=== PATIENT | female | born 1980 | race Caucasian/White ===

== ENCOUNTER → 2019-07-19 10:16 | Outpatient (BNVA) | payer BC, SELFPAY | PROVIDERS: Family Provider Nurse Practitioner Family; PCP Nurse Practitioner Family; Visit Provider Physician Assistant | DX: E06.3 Autoimmune thyroiditis (principal); E10.65 Type 1 diabetes mellitus with hyperglycemia | CPT/HCPCS: 80053; 82044; 83036; 84439; 84443 ==

== ENCOUNTER → 2020-08-22 10:49 | Outpatient (BNVA) | payer BC, SELFPAY | PROVIDERS: Family Provider Nurse Practitioner Family; PCP Registered Nurse; Visit Provider Physician Assistant | DX: E03.8 Other specified hypothyroidism (principal); E06.3 Autoimmune thyroiditis; E11.65 Type 2 diabetes mellitus with hyperglycemia | CPT/HCPCS: 80053; 82043; 83036; 84439; 84443 ==

== ENCOUNTER → 2020-10-17 16:23 | Outpatient (BNVA) | payer BC, SELFPAY | PROVIDERS: Family Provider Nurse Practitioner Family; PCP Registered Nurse; Visit Provider Nurse Practitioner Women's Health | DX: N93.9 Abnormal uterine and vaginal bleeding, unspecified (principal) | CPT/HCPCS: 84702; 85025 ==

== ENCOUNTER 2020-11-05 10:18 | Outpatient (CLI) | payer BC, SELFPAY ==
--- NOTE | 2020-11-05 11:00 | US_ITS ---
WS: [id number] ULTRASOUND PELVIS TECHNIQUE: Transvaginal. CLINICAL INFORMATION: N93.9 - Abnormal uterine and vaginal bleeding, unspecified : No. COMPARISON: None. FINDINGS: Uterus Orientation: Anteverted. Size: 9.9 x 5.7 x 6.3 cm Masses: None. Cervix: Incidental nabothian cysts. Endometrium: Heterogeneous thickened endometrium Endometrium thickness: 1.6 cm. Adnexa: Simple right ovarian cyst measuring 2.5 x 2.2 x 1.8 cm with small daughter cyst Right ovary size: 4.4 x 4.3 x 3.0 cm. Left ovary size: 3.1 x 1.4 x 2.6 cm. Free fluid: None. Other findings: None. US/US transvaginal [id number] IMPRESSION: 1. Heterogeneous enlarged uterus. scar visualized. 2. Thickened heterogeneous endometrium measures 16 mm. This can be further danuta luated with hysteroscopy. 3. Simple right ovarian cyst measuring 2.5 x 2.2 x 1.8 cm with small daughter cyst. Normal left ovary. 4. No free fluid in the cul-de-sac.
== END 2020-11-05 10:19 | disposition home or self-care (01) ==
LOC: RAD 10:24
PROVIDERS: PCP Registered Nurse; Visit Provider Nurse Practitioner Women's Health
DX: N93.9 Abnormal uterine and vaginal bleeding, unspecified (principal); N83.291 Other ovarian cyst, right side; R93.89 Abnormal findings on diagnostic imaging of other specified body structures; N85.2 Hypertrophy of uterus
CPT/HCPCS: 76830

== ENCOUNTER → 2020-11-12 11:08 | Outpatient (BNVA) | payer BC, SELFPAY | PROVIDERS: PCP Registered Nurse; Visit Provider Nurse Practitioner Women's Health | DX: N93.9 Abnormal uterine and vaginal bleeding, unspecified (principal) | CPT/HCPCS: 81025; 85025 ==

== ENCOUNTER → 2020-11-13 15:45 | Outpatient (BNVA) | payer BC, SELFPAY | PROVIDERS: PCP Registered Nurse; Referring Provider Nurse Practitioner Women's Health; Visit Provider Obstetrics & Gynecology | DX: N93.9 Abnormal uterine and vaginal bleeding, unspecified (principal) | CPT/HCPCS: 87635 ==

== ENCOUNTER 2020-11-18 08:52 | Day surgery (SDC) | payer BC, SELFPAY ==
[2020-11-17 14:01] VITALS: BMI 43.0
[2020-11-18] VITALS (7 sets, daily range): BP systolic 113–159; BP diastolic 64–94; PULSE 71–108; RESP 16–20; TEMP 36.4–36.6; O2SAT 93–100
[2020-11-18 09:36] LABS: OR HCG Qualitative Urine Negative (Negative)
--- NOTE | 2020-11-18 09:37 | W.PM.OPSUD ---
Surgery/Procedure H&P Update DATE OF PROCEDURE: November 18, 2020 DATE H&P PERFORMED: 11/13/20 H&P UPDATE INFORMATION: I have reviewed H&P completed within last 30 days, I have examined patient prior to procedure and No changes to prior documentation PREOP DIAGNOSIS: AUB, fibroid uterus PLANNED PROCEDURE: Operation Date: 11/18/20 11:10 Proposed Procedures p Hysteroscopy w/ Myosure [id number] n93.9(Not Applicable) - Carmen Fofana MD s Dilation And Curettage (D&C)(Not Applicable) - Carmen Fofana MD
[2020-11-18 09:53] LABS: Glucose Point of Care 271 mg/dL (70-110)
[2020-11-18] MEDS: sodium chloride 0.9% 1,000 ML 30 ML IV (09:56)
[2020-11-18 10:05] LABS: Basophils % 0.6 %; Eosinophils # 0.1 10^3/uL (0.0-0.8); Eosinophils % 2.1 %; Hematocrit 29.9 % (37.0-47.0); Hemoglobin 9.2 g/dL (11.5-15.3); Lymphocytes # 1.8 10^3/uL (0.8-4.8); Mean Corpuscular HGB Conc 30.8 g/dL (30.0-36.0); Mean Corpuscular Hemoglobin 29.5 pg (28.0-34.0); Mean Corpuscular Volume 95.8 fL (81-99); Mean Platelet Volume 9.4 fL (7.4-10.4); Monocytes # 0.3 10^3/uL (0.2-0.9); Nucleated Red Blood Cells % 0 %; Platelet Count 362 10^3/cmm (130-400); Red Blood Count 3.12 10^6/uL (4.1-5.3); Red Cell Distribution Width 13.9 % (12.1-15.1); White Blood Count 6.8 10^3/uL (4.0-10.0)
[2020-11-18 10:30] LABS: Alanine Aminotransferase 10 U/L (0-33); Albumin Level 4.1 g/dL (3.5-5.2); Alkaline Phosphatase 89 IU/L (35-105); Anion Gap 15.7 (5-19); Aspartate Amino Transferase 14 U/L (0-32); Blood Urea Nitrogen 11 mg/dL (6-20); Calcium 8.8 mg/dL (8.5-10.5); Carbon Dioxide 24 mmol/L (22-29); Chloride 101 mmol/L (98-107); Globulin 2.5 g/dL (1.3-4.6); Glucose 256 mg/dL (65-115); Osmolality Calculated 290 mOsm/kg (285-295); Potassium 4.7 mmol/L (3.5-5.1); Sodium 136 mmol/L (136-145); Total Bilirubin 0.3 mg/dL (0.15-1.2); Total Protein 6.6 g/dL (6.6-8.7)
--- NOTE | 2020-11-18 10:43 | ANES.PREANE2 ---
Pre-Anesthetic Assessment Pre-Anesthetic Assessment: Height/Weight: Height 1.75 m Weight 131.995 kg Temp Pulse Resp BP Pulse Ox 97.6 F 95 18 159/94 99 11/18/20 09:39 11/18/20 09:39 11/18/20 09:39 11/18/20 09:39 11/18/20 09:39 Preop Diagnosis: AUB, fibroid uterus Proposed Procedure: Operation Date: 11/18/20 11:10 Proposed Procedures p Hysteroscopy w/ Myosure [id number] n93.9(Not Applicable) - Carmen Fofana MD s Dilation And Curettage (D&C)(Not Applicable) - Carmen Fofana MD Was Beta Sienna taken within 24 hours: N/A Was Clonidine taken within 24 hours: N/A Last intake: Intake Last Liquid Date 11/17/20 Last Liquid Time 22:30 Last Solid Date 11/17/20 Last Solid Time 20:30 Social: Social History: No alcohol and No tobacco Exam: Pre-Anes Outpt Exam: alert, oriented x 3, clear to auscultation bilaterally and regular rate & rhythm Airway: Submandibular: WNL Cervical ROM: WNL MP: 2 Dentition: Full Metabolic: Metabolic: DM, Morbid obesity and Thyroid Anesthetic Plan: ASA status: 3 Anesthesia: General Meds/Allergies Current Medications: Current Medications Generic Name Dose Route Start Last Admin Trade Name Freq PRN Reason Stop Dose Admin Sodium Chloride 1,000 mls @ 30 ml s/hr 11/18/20 09:30 11/18/20 09:56 Sodium Chloride 0.9% IV 11/19/20 09:29 30 mls/hr .Q24H REYNA Administration PFSH Anesthesia PFSH: Medical History Diabetes type 1, controlled Hypothyroidism No pertinent past medical history denies hx:htn,dvt/pe PCP: Bg [facility]/Iram James Surgical History H/O removal of cyst (~2005) pilonidal? History of section 2008 2015 Hx of foot surgery (~1996) right Family History Mother Hypertension Kidney disease Arthritis Heart disease Father Cancer Hypertension Heart disease Denies family history of Cervical cancer Colon cancer Ovarian cancer Breast cancer Uterine cancer Thyroid disease Data Anesthesia CBC & Chem 7: 11/18/20 09:50 11/18/20 09:50 Other Labs: Laboratory Results - last 48 hr 11/18/20 11/18/20 11/18/20 09:21 09:50 09:50 WBC 6.8 RBC 3.12 L Hgb 9.2 L Hct 29.9 L MCV 95.8 MCH 29.5 MCHC 30.8 RDW 13.9 Plt Count 362 MPV 9.4 Neut % (Auto) 66.0 Lymph % (Auto) 26.0 [place] % (Auto) 5.0 Eos % (Auto) 2.1 Baso % (Auto) 0.6 Neut # (Auto) 4.50 Lymph # (Auto) 1.8 [place] # (Auto) 0.3 Eos # (Auto) 0.1 Baso # (Auto) 0.0 Nucleated RBC % (auto) 0 Nucleated RBCs # 0.0 Sodium 136 Potassium 4.7 Chloride 101 Carbon Dioxide 24 Anion Gap 15.7 BUN 11 Creatinine 0.8 GFR Calculation 79.0 L Glucose 256 H POC Glucose Calculated Osmolality 290 Calcium 8.8 Total Bilirubin 0.3 AST 14 ALT 10 Alkaline Phosphatase 89 Total Protein 6.6 Albumin 4.1 Globulin 2.5 Urine HCG, Qual Negative 11/18/20 09:50 WBC RBC Hgb Hct MCV MCH MCHC RDW Plt Count MPV Neut % (Auto) Lymph % (Auto) [place] % (Auto) Eos % (Auto) Baso % (Auto) Neut # (Auto) Lymph # (Auto) [place] # (Auto) Eos # (Auto) Baso # (Auto) Nucleated RBC % (auto) Nucleated RBCs # Sodium Potassium Chloride Carbon Dioxide Anion Gap BUN Creatinine GFR Calculation Glucose POC Glucose 271 H Calculated Osmolality Calcium Total Bilirubin AST ALT Alkaline Phosphatase Total Protein Albumin Globulin Urine HCG, Qual Cardiac Studies: No Data to Display
--- NOTE | 2020-11-18 11:25 | P.OP_ITS ---
Operative Report Date of procedure: November 18, 2020 Pre-op Diagnosis: AUB, fibroid uterus Post-op diagnosis: same Post-op Findings: 11 week sized uterus with excessive tissue Procedure Done: hysteroscopy, dilation and curettage with myosure Specimens removed/disposition: endometrial curettings to pathology Surgeon: Carmen Fofana Anesthesia: General Estimated blood loss (mL): 10 IV fluids (mL): 600 Complications: none Findings: hysteroscopy deficit 1100 ml Condition: stable Disposition: PACU Procedure: The patient was taken to the operating room where monitored anesthesia was administered and to be adequate. She was prepped and draped in the normal sterile fashion in the dorsal lithotomy position in [facility]. A weighted speculum was placed into the vagina and the anterior lip of the cervix grasped with a single-tooth tenaculum. The uterus was sounded to 11 cm. The cervix was dilated to 12 [place]. The hysteroscope was advanced into the endometrial cavity. There was excessive tissue visualized. The MyoSure device was activated and the tissue was removed. Pictures were taken pre and post procedure. All instruments were removed. The patient tolerated the procedure well. Sponge lap and needle counts were correct x3. She was taken to the recovery room in stable condition.
--- NOTE | 2020-11-18 11:31 | PM.DCS ---
Discharge Providers Date of Discharge: November 18, 2020 Attending Provider at Discharge: Carmen Fofana MD Primary Care Provider: NASEEM Ryan Reason for Visit Reason for Visit: Hysteroscopy, dilation and curettage with myosure Hospital Course Hospital Course The patient was admitted for surgery. She did well postoperatively and was ready for discharge. Discharge Data Data Completed and Pending: Pending at discharge Category Date Time Status ES surgery / GI i mages Routine Exams 11/18/20 10:25 Taken Labs from last 24 hours 11/18/20 11/18/20 11/18/20 09:50 09:50 09:50 WBC 6.8 RBC 3.12 L Hgb 9.2 L Hct 29.9 L MCV 95.8 MCH 29.5 MCHC 30.8 RDW 13.9 Plt Count 362 MPV 9.4 Neut % (Auto) 66.0 Lymph % (Auto) 26.0 [place] % (Auto) 5.0 Eos % (Auto) 2.1 Baso % (Auto) 0.6 Neut # (Auto) 4.50 Lymph # (Auto) 1.8 [place] # (Auto) 0.3 Eos # (Auto) 0.1 Baso # (Auto) 0.0 Nucleated RBC % (a uto) 0 Nucleated RBCs # 0.0 Sodium 136 Potassium 4.7 Chloride 101 Carbon Dioxide 24 Anion Gap 15.7 BUN 11 Creatinine 0.8 GFR Calculation 79.0 L Glucose 256 H POC Glucose 271 H Calculated Osmolal ity 290 Calcium 8.8 Total Bilirubin 0.3 AST 14 ALT 10 Alkaline Phosphata se 89 Total Protein 6.6 Albumin 4.1 Globulin 2.5 Urine HCG, Qual 11/18/20 09:21 WBC RBC Hgb Hct MCV MCH MCHC RDW Plt Count MPV Neut % (Auto) Lymph % (Auto) [place] % (Auto) Eos % (Auto) Baso % (Auto) Neut # (Auto) Lymph # (Auto) [place] # (Auto) Eos # (Auto) Baso # (Auto) Nucleated RBC % (a uto) Nucleated RBCs # Sodium Potassium Chloride Carbon Dioxide Anion Gap BUN Creatinine GFR Calculation Glucose POC Glucose Calculated Osmolal ity Calcium Total Bilirubin AST ALT Alkaline Phosphata se Total Protein Albumin Globulin Urine HCG, Qual Negative Vitals: Last Vital Signs Temp 97.5 F L 11/18/20 11:28 Pulse 108 H 11/18/20 11:28 Resp 18 11/18/20 11:28 BP 146/94 11/18/20 11:28 Pulse Ox 93 11/18/20 11:28 Discharge Plan Discharge Patient Disposition: Home Condition: Stable Prescriptions: Continued norethindrone acetate 5 mg tablet 5 mg PO DAILY Qty: 30 RF: 1 Humalog U-100 Insulin 100 unit/mL cartridge 20 unit SUBCUT TID RF: 0 Lantus U-100 Insulin 100 unit/mL solution 36 unit SUBCUT BID RF: 0 levothyroxine 175 mcg capsule 175 mcg PO DAILY RF: 0 Discharge Orders: Discharge Order (Routine); Ordered 11/18/20 Ordered By: Carmen Fofana Discharge Attestations Time Spent in Discharge Care*: less than 30 min Quality Metrics Clinical Quality Measures During this hospital stay, did patient experience: None Coding Level of Care Code Acute Chg DC note
--- NOTE | 2020-11-18 12:48 | ANE.PACU2 ---
Inpatient post-anesthesia follow up: Airway intact: Yes Vital signs: Temperature 97.8 F Pulse Rate 71 Respiratory Rate 18 Blood Pressure 113/84 Pulse Oximetry 100 Oxygen Delivery Me thod Room Air Oxygen Flow Rate Fraction of Inspir ed Oxygen Hydration adequate: Yes Nausea and vomiting: No Pain level: 3 Mental status: Baseline
[2020-11-18] MEDS: cetylpyridinium Lozenge 1 EACH MUCOUS MEM (13:02)
== END 2020-11-18 13:07 | disposition home or self-care (01) ==
PROVIDERS: Anesthesiology; PCP Registered Nurse; Visit Provider Obstetrics & Gynecology
PROC: 0UDB8ZZ Extraction of Endometrium, Via Natural or Artificial Opening Endoscopic (ICD-10-PCS; CPT 58558; principal; 2020-11-18 11:00)
DX: D25.9 Leiomyoma of uterus, unspecified (principal); E10.9 Type 1 diabetes mellitus without complications; E03.9 Hypothyroidism, unspecified; E66.01 Morbid (severe) obesity due to excess calories; Z68.41 Body mass index [BMI] 40.0-44.9, adult
CPT/HCPCS: 58558; 36415; 36416; 80053; 81025; 82962; 84703; 85025; 88305; J2405; J2704; J2710; J3010; J3490; J7030

== ENCOUNTER 2021-04-29 09:15 | Outpatient (CLI) | payer BC, SELFPAY ==
--- NOTE | 2021-04-29 09:30 | MM_ITS ---
WS: [id number] BILATERAL DIGITAL SCREENING MAMMOGRAPHY WITH CAD CLINICAL INFORMATION: Z12.39 - Encounter for other screening for malignant neop... HISTORY: Screening mammogram. No current complaints. COMPARISON: None. TECHNIQUE: Bilateral CC and MLO views. FINDINGS: Scattered fibroglandular densities bilaterally. A few tiny incidental benign punctate calcifications. No suspicious focal mass, asymmetry, calcifications, or architectural distortion. No evidence of mal ignancy. MM/[place] [id number] IMPRESSION: BI-RADS: 2-Benign FOLLOW UP: 1 Year Follow-up Recommend return to annual screening mammography.
== END 2021-04-29 09:16 | disposition home or self-care (01) ==
LOC: RADSHAW 09:18
PROVIDERS: PCP Registered Nurse; Visit Provider Nurse Practitioner Women's Health
DX: Z12.39 Encounter for other screening for malignant neoplasm of breast (principal)
CPT/HCPCS: 77067

== ENCOUNTER → 2021-07-23 09:34 | Outpatient (BNVA) | payer OTHER, SELFPAY | PROVIDERS: PCP Registered Nurse; Visit Provider Registered Nurse | DX: E03.9 Hypothyroidism, unspecified (principal); E10.9 Type 1 diabetes mellitus without complications; H92.03 Otalgia, bilateral | CPT/HCPCS: 82043; 83036; 84439; 84443 ==

== ENCOUNTER → 2021-11-11 10:12 | Outpatient (BNVA) | payer OTHER, SELFPAY | PROVIDERS: PCP Registered Nurse; Visit Provider Physician Assistant | DX: E10.9 Type 1 diabetes mellitus without complications (principal) | CPT/HCPCS: 80053; 82043; 83036; 84439; 84443 ==

== ENCOUNTER → 2022-01-23 12:30 | Outpatient (BNVA) | payer OTHER, SELFPAY | PROVIDERS: PCP Registered Nurse; Visit Provider Registered Nurse Neonatal Intensive Care | DX: M25.521 Pain in right elbow (principal) | CPT/HCPCS: 73080 ==

== ENCOUNTER → 2022-02-09 14:16 | Outpatient (BNVA) | payer OTHER, SELFPAY | PROVIDERS: PCP Registered Nurse; Visit Provider Student in an Organized Health Care Education/Training Program | DX: M24.021 Loose body in right elbow (principal); W19.XXXA Unspecified fall, initial encounter; S59.901A Unspecified injury of right elbow, initial encounter | CPT/HCPCS: 73080 ==

== ENCOUNTER 2022-03-18 13:18 | Outpatient (CLI) | payer OTHER, SELFPAY ==
--- NOTE | 2022-03-18 13:40 | XRR_ITS ---
PROCEDURE INFORMATION: Exam: XR Chest Exam date and time: 03/18/2022 1:40 PM Age: 41 years old Clinical indication: Cough; Additional info: R05.8 - other specified cough TECHNIQUE: Imaging protocol: Radiologic exam of the chest. Views: 2 views. COMPARISON: ES surgery / GI images 11/18/2020 9:57 AM FINDINGS: Lungs: Hyperinflation and interstitial prominence, without infiltrate. Pleural spaces: No pleural effusion. Heart/Mediastinum: Normal configuration of the heart. Bones/joints: Degenerative change and scoliosis. XR/XR chest 2V* [id number] IMPRESSION: Hyperinflation and interstitial prominence, without infiltrate.
== END 2022-03-18 13:19 | disposition home or self-care (01) ==
LOC: RAD 13:22
PROVIDERS: PCP Registered Nurse; Visit Provider Registered Nurse
DX: R05.9 Cough, unspecified (principal)
CPT/HCPCS: 71046; 85025

== ENCOUNTER 2022-03-25 12:55 | Outpatient (CLI) | payer OTHER, SELFPAY ==
--- NOTE | 2022-03-25 13:00 | MR_ITS ---
WS: [id number] MRI RIGHT ELBOW without CONTRAST. COMPARISON: RIGHT elbow radiograph 02/09/2022 Multiplanar, multisequence imaging is performed without contrast. Moderate-sized joint effusion at the elbow. Marrow edema involving the radial head extending into the proximal radius. Very tiny cortical defect along the anterior radial head consistent with a small av ulsion fracture. Seen best on the coronal proton density sequence is low signal in the lateral joint space just above the radial head which may be a small loose body or cartilage fragment. Very slight i nterruption of the cortex of the lateral condyle at the intra-articular surface. There is a high-grad e tear involving the radial collateral ligament. Small focus of increased T2 signal with thickening i nvolving the common extensor tendon at the joint line. Additional marrow edema in the lateral humeral condyle. Biceps tendon in normal position. MR/MR elbow RT wo con* [id number] IMPRESSION: 1. High-grade tear radial collateral ligament at the attachment to the lateral epicondyle. 2. Additional minimal tear resulting in thinning of the common extensor tendon . This tears at the joint line. 3. Superficial avulsion fracture from the radial head and also suspected addit ional cortical injury from the joint surface of the lateral humeral condyle. 4. Moderate-sized joint effusion. 5. Low-attenuation irregular shaped hypointensity within the lateral joint may be a small cartilage fragment or bone fragment. 6. Marrow edema lateral humeral condyle and proximal radius.
== END 2022-03-25 12:56 | disposition home or self-care (01) ==
LOC: RAD 12:55
PROVIDERS: PCP Registered Nurse; Visit Provider Student in an Organized Health Care Education/Training Program
DX: M24.021 Loose body in right elbow (principal); S52.121A Displaced fracture of head of right radius, initial encounter for closed fracture; S53.431A Radial collateral ligament sprain of right elbow, initial encounter; X58.XXXA Exposure to other specified factors, initial encounter; M25.421 Effusion, right elbow
CPT/HCPCS: 73221

== ENCOUNTER 2022-04-14 06:00 | Outpatient (RCR) | payer OTHER, SELFPAY | END 2022-05-05 23:59 | disposition home or self-care (01) | LOC: SOT 06:00 | PROVIDERS: PCP Registered Nurse; Visit Provider Orthopaedic Surgery | DX: M25.521 Pain in right elbow (principal) | CPT/HCPCS: 97022; 97110; 97165 ==

== ENCOUNTER → 2022-04-26 08:32 | Outpatient (BNVA) | payer OTHER, SELFPAY | PROVIDERS: PCP Registered Nurse; Visit Provider Physician Assistant | DX: E10.65 Type 1 diabetes mellitus with hyperglycemia (principal); E03.9 Hypothyroidism, unspecified | CPT/HCPCS: 80053; 80061; 82043; 83036; 84439; 84443 ==

== ENCOUNTER → 2022-10-12 09:05 | Outpatient (BNVA) | payer OTHER, SELFPAY | PROVIDERS: PCP Registered Nurse; Visit Provider Physician Assistant | DX: E10.9 Type 1 diabetes mellitus without complications (principal); E03.9 Hypothyroidism, unspecified | CPT/HCPCS: 80053; 80061; 83036; 84439; 84443 ==

== ENCOUNTER → 2022-12-16 11:21 | Outpatient (BNVA) | payer OTHER, SELFPAY | PROVIDERS: PCP Registered Nurse; Visit Provider Registered Nurse | DX: E03.9 Hypothyroidism, unspecified (principal); N39.0 Urinary tract infection, site not specified | CPT/HCPCS: 81000 ==

== ENCOUNTER → 2023-03-07 12:56 | Outpatient (BNVA) | payer OTHER, SELFPAY | PROVIDERS: PCP Registered Nurse; Visit Provider Registered Nurse | DX: R35.0 Frequency of micturition (principal) | CPT/HCPCS: 81000 ==

== ENCOUNTER → 2023-03-15 08:54 | Outpatient (BNVA) | payer OTHER, SELFPAY | PROVIDERS: PCP Registered Nurse; Visit Provider Registered Nurse | DX: R39.9 Unspecified symptoms and signs involving the genitourinary system (principal); N39.0 Urinary tract infection, site not specified; R10.2 Pelvic and perineal pain; R39.15 Urgency of urination | CPT/HCPCS: 81000; 87086 ==

== ENCOUNTER → 2023-04-07 14:00 | Outpatient (BNVA) | payer OTHER, SELFPAY | PROVIDERS: PCP Registered Nurse; Visit Provider Nurse Practitioner Women's Health | DX: Z12.4 Encounter for screening for malignant neoplasm of cervix (principal) | CPT/HCPCS: 87624 ==

== ENCOUNTER → 2023-04-19 08:36 | Outpatient (BNVA) | payer OTHER, SELFPAY | PROVIDERS: PCP Registered Nurse; Visit Provider Nurse Practitioner Women's Health | DX: R10.2 Pelvic and perineal pain (principal) | CPT/HCPCS: 76830 ==